=== PATIENT | female | born 1975 | race Caucasian/White ===

== ENCOUNTER 2016-08-04 18:25 | Inpatient (IN) | payer BC ==
--- NOTE | ~2016-08-04 | DS ---
Discharge Summary [facility] [address] [place]. [address] NAME: HOWARD POLLACK : 75 STATUS : DIS IN PAT#: [id number] AGE: 41 ADM/REG DATE : 08/04/16 MR#: [id number] REPORT SERV DATE: 08/09/16 DICTATED BY: JR. ELLISON WILLIAM JOHN DATE: 08/08/16 REPORT STATUS : Draft TRANSCRIBED BY: HIRAM DATE: 08/08/16 ADMISSION DATE: 08/04/2016 DISCHARGE DATE: 08/08/2016 DISCHARGE DIAGNOSES: 1. Recurrent fever of unknown origin. 2. Sinus tachycardia. 3. 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 4. Acute bilateral upper extremity macular rash, which is transient. 5. Elevated liver function enzymes. OPERATIONS, PROCEDURES, AND TREATMENTS: Include: 1. Echocardiogram done on 08/08, which showed an ejection fraction of 50%, indeterminate diastolic dysfunction. Right ventricle was intact. There was no significant valvular dysfunction. 2. Blood cultures x2 done on 08/04/2016 and 08/05/2016 were negative. 3. PA and lateral chest x-ray done on 08/06/[address] of the abdomen and pelvis done on 08/07/2016 showed nonobstructing renal stone. There were scattered diverticula in the colon without diverticulitis. There was prior cholecystectomy without biliary dilation. DISCHARGE MEDICATIONS: Include: 1. Cholecalciferol 10,000 units every 48 hours. 2. Ynes 180 mg orally at bedtime. 3. Singulair 10 mg orally daily. 4. Metoprolol 25 mg orally twice a day. 5. QVAR two sprays twice a day as needed. 6. Albuterol metered-dose inhaler two puffs as needed for shortness of breath. 7. Vitamin B12 urpa-cuk-xvmpigr daily. HOSPITAL COURSE: The patient is a very pleasant 41-year-old white female, who presented to [facility] emergency room on 08/04/2016 with complaint of fever daily for about nine days of fevers. Temperature ranged from 99.1 to 101.2, taken at home. She also complained of some hip and mild thigh and back pain. She had been placed on Levaquin without improvement of her fever, came to the emergency room for further help. Initial exam showed a temperature of 99.4, heart rate 115, blood pressure 131/63, and respiratory rate of 14. For further details of the presenting history, physical, and data, please see Dr. Dimitry Carroll's dictated history and physical. The patient was admitted to the Clinical Decision Unit. Blood cultures were obtained and were negative. With regard to the recurrent fevers, she had elevation of her transaminases with alkaline phosphatase initially 168, ALT of 123, and AST of 57. These declined throughout the hospitalization. Most recent numbers were alkaline phosphatase 153, AST of 88, ALT of 35. She had hepatitis and HIV checked, all of which were negative. She had a rheumatoid factor which was less than 10. She had a C-reactive protein which was elevated at 66.4, and TSH and free T4 were normal. She also had an [facility] profile which is pending at Discharge Summary [address] [place]. [address] NAME: HOWARD POLLACK : 75 STATUS : DIS IN PAT#: [id number] AGE: 41 ADM/REG DATE : 08/04/16 MR#: [id number] REPORT SERV DATE: 08/09/16 DICTATED BY: JR. ELLISON WILLIAM JOHN DATE: 08/08/16 REPORT STATUS : Draft TRANSCRIBED BY: HIRAM DATE: 08/08/16 this time. Eventually, the patient was seen by Dr. Colin Fitzgerald as it is thought this is a noninfectious source of fever. Dr. Fitzgerald agreed. He recommended further lab draws, as well as two blood cultures, and will follow her up in his office on 08/15/2016, at 9:30 a.m. Regarding the patient's sinus tachycardia, this is throughout the hospitalization. She had thyroid drawn which was normal. In addition, the patient had an echocardiogram which showed no structural abnormality. She was placed on metoprolol 25 mg orally twice a day and will follow up with her primary care physician, Dr. Mendez. Regarding the patient's elevated liver function enzymes, these were declining and should be rechecked in two to four weeks. DISCHARGE DIET: Regular. ACTIVITY: As tolerated. For discharge exam and laboratory, please see daily progress notes. The patient will follow up with Dr. Colin Fitzgerald on 08/15/[address] Mendez in one to two weeks. This discharge took 35 minutes for patient's encounter, coordination of care, and documentation. WJF/MODL Adonay Ellison Jr, MD / [id number] CC: Adonay Ellison Jr, MD David Elias, M.D.
--- NOTE | ~2016-08-04 | HP ---
History And Physical [place] [address] [facility] [place]. [address] NAME: HOWARD POLLACK : 75 STATUS : ADM Marcia PAT#: [id number] AGE: 41 ADM/REG DATE : 08/04/16 MR#: [id number] REPORT SERV DATE: 08/05/16 DICTATED BY: JOSHUA FIELD DATE: 08/04/16 REPORT STATUS : Draft TRANSCRIBED BY: MODL DATE: 08/04/16 DATE OF ADMISSION: 08/04/2016 CHIEF COMPLAINT: Fever of unknown origin. HISTORY OF PRESENT ILLNESS: This is a very pleasant 41-year-old white female, who reports that she has had a fever for approximately nine days, temperatures ranging from 99.1 to 101.2 at her home. During these episodes with fever arise that she feels somewhat flushed, some fatigue, and also has complained of some hip pain and some mild thigh and back pain as well. She was seen by primary care provider on Sunday of this week and placed on Levaquin. She has had approximately three doses of that with no improvement on her fevers. In fact, she states they were somewhat higher to her once starting the Levaquin. She has taken some Tylenol at home, which she states has helped very little in regard to her fever. She states her appetite has been somewhat decreased, particularly her fluid intake, but she did eat lunch today. She has had no recent travel or exposures that she knows of. She denies any shortness of breath. Denies any chest pain. Denies any nausea, vomiting. Denies any abdominal pain. Denies any dysuria or frequency, and denies any dizziness, blurred vision, and denies any insect bites or tick bites that she has seen as well. ALLERGIES: INCLUDE DILAUDID, WHICH SHE STATES CLOSE HER THROAT. MORPHINE CAUSES ITCH. PAST MEDICAL HISTORY: Includes diverticulitis, seasonal allergies, and asthma of which she takes ProAir and QVAR p.r.n. for asthma. SURGICAL HISTORY: Cholecystectomy in 2004, laparoscopic colon resection in 2003, and prior C section. FAMILY HISTORY: Unknown on father and none to speak of on mother side. SOCIAL HISTORY: Denies any alcohol. Denies any smoking. REVIEW OF SYSTEMS: Essentially negative, except for pertinents mentioned in the above HPI. PHYSICAL EXAMINATION: VITAL SIGNS: Temperature currently 99.4, pulse rate 115, blood pressure 131/63, respiratory rate 14, and 96% on room air. GENERAL: She is alert and oriented, in no acute distress. No focal deficits. Able to give good history and is cooperative and awake for the entire exam. No appreciable lymphadenopathy is palpated. LUNGS: Clear to auscultation bilaterally. Normal respiratory effort. Currently on room air. No murmurs, rubs, or gallops are auscultated. HEART: Regular rate and rhythm. Sinus tachycardia. ABDOMEN: Soft and nontender with somewhat hypoactive bowel sounds. No edema. Normal distal pulses. HEENT: PERRLA is noted. Sclerae are clear. History And Physical [address] [address] NAME: HOWARD POLLACK : 75 STATUS : ADM Marcia PAT#: [id number] AGE: 41 ADM/REG DATE : 08/04/16 MR#: [id number] REPORT SERV DATE: 08/05/16 DICTATED BY: JOSHUA FIELD DATE: 08/04/16 REPORT STATUS : Draft TRANSCRIBED BY: HIRAM DATE: 08/04/16 SKIN: Warm and dry. ASSESSMENT: 1. Fever of unknown origin. 2. Sinus tachycardia. 3. Asthma. 4. History of urinary tract infection. 5. History of diverticulitis. PLAN: We will plan on obtaining CBC, CMP, UA, TSH, MAC, procalcitonin, and sedimentation rate for lab work. We will start the patient on some IV fluids, lactated Ringer for likely dehydration, and DuoNebs p.r.n. for her asthma. At this time, low threshold for imaging, but could obtain CT of chest or abdomen. If fevers increase or persist or the patient has any aggressive symptomatology, I have updated both patient and at bedside. Questions were answered. She will have reasonable pain and nausea control as well. DVT prophylaxis and further workup pending this initial testing. STACEY/MODL Joshua Field NP / [id number] CC: MD Akash Lawrence, M.D.
[2016-08-04 21:49] LABS: BASOPHILS ABSOLUTE 0.07 10/3/uL (0.0-0.16); EOSINOPHILS 1.1 %; EOSINOPHILS ABSOLUTE 0.08 10/3/uL (0.0-0.53); IMMATURE GRANULOCYTES ABSOLUTE 0.07 10/3/uL (0.0-0.11); LYMPHOCYTES 38.5 %; LYMPHOCYTES ABSOLUTE 2.69 10/3/uL (0.67-4.30); MANUAL DIFF NO %; MEAN CORPUS HGB CONC 34.2 g/dL (32.0-36.0); MEAN CORPUSCULAR HEMOGLOB 30.2 pg (26.0-34.0); MEAN CORPUSCULAR VOLUME 88.2 fL (80-100); MONOCYTES 8.4 %; MONOCYTES ABSOLUTE 0.59 10/3/uL (0.21-1.20); NEUTROPHILS ABSOLUTE 3.49 10/3/uL (2.02-8.40); PLATELET COUNT 251 10/3/uL (150-400); RBC DISTRIBUTION WIDTH 13.2 % (12.0-16.0); RED CELL COUNT 4.31 10/6/uL (4.0-5.6)
[2016-08-04 22:02] LABS: A/G RATIO 0.9 (0.7-1.9); ALBUMIN 3.7 G/DL (3.5-5.0); ALKALINE PHOSPHATASE 195 U/L (45-117); BUN (BLOOD UREA NITROGEN) 9 MG/DL (6-23); CALCIUM, SERUM 8.8 MG/DL (8.5-10.4); CHLORIDE, SERUM 101 MMOL/L (96-112); CO2 (CARBON DIOXIDE) 25 MMOL/L (24-34); GFR AFRICAN AMERICAN 131 ML/MIN (>=60); GFR NON AFRICAN AMERICAN 113 ML/MIN (>=60); GLOBULIN 4.2 G/DL (2.5-4.1); GLUCOSE, SERUM 109 MG/DL (60-99); POTASSIUM, SERUM 3.7 MMOL/L (3.5-5.3); SGOT(AST) 75 U/L (5-40); SGPT(ALT) 145 U/L (5-65); SODIUM, SERUM 136 MMOL/L (135-148); TOTAL BILIRUBIN 1.1 MG/DL (0-1.2); TOTAL PROTEIN 7.9 G/DL (6.0-8.5); ULTRASENSITIVE TSH 0.954 MCIU/ML (0.358-3.740)
[2016-08-04 22:02] LABS: ASCORBIC ACID (UR NOT ORDER) NEG (NEG); BILIRUBIN, URINE NEGATIVE (NEG); KETONE, URINE NEGATIVE (NEG); LEUKOCYTE ESTERASE(NOT OR NEG (NEG); WBC (NOT ORDERED) (RFLEX) 1 (0-5)
[2016-08-04 22:57] LABS: PROCALCITONIN <0.05 ng/mL (<0.5)
[2016-08-04 23:16] LABS: SED RATE 28 MM/HR (0-20)
[2016-08-05] MEDS ORDERED: ALLEGRA180 PO (01:39)
[2016-08-05] MEDS ORDERED: SINGULAIR1 PO (01:40)
[2016-08-05] MEDS ORDERED: QVAR80 MCG INH (01:43)
[2016-08-05] MEDS ORDERED: LEVAQUIN5T PO (01:44)
[2016-08-05] MEDS ORDERED: PROAIR HFA INH (01:48)
[2016-08-05 06:36] LABS: BASOPHILS 0.6 %; BASOPHILS ABSOLUTE 0.04 10/3/uL (0.0-0.16); EOSINOPHILS 1.9 %; EOSINOPHILS ABSOLUTE 0.12 10/3/uL (0.0-0.53); HEMATOCRIT 36.2 % (36.0-48.0); HEMOGLOBIN 12.4 g/dL (12.0-16.0); IMMATURE GRANULOCYTES 0.8 %; IMMATURE GRANULOCYTES ABSOLUTE 0.05 10/3/uL (0.0-0.11); LYMPHOCYTES 40.8 %; MANUAL DIFF NO %; MEAN CORPUS HGB CONC 34.3 g/dL (32.0-36.0); MEAN CORPUSCULAR HEMOGLOB 30.4 pg (26.0-34.0); MEAN CORPUSCULAR VOLUME 88.7 fL (80-100); MONOCYTES ABSOLUTE 0.64 10/3/uL (0.21-1.20); NEUTROPHILS 45.9 %; NEUTROPHILS ABSOLUTE 2.92 10/3/uL (2.02-8.40); PLATELET COUNT 237 10/3/uL (150-400); RBC DISTRIBUTION WIDTH 13.1 % (12.0-16.0); RED CELL COUNT 4.08 10/6/uL (4.0-5.6); WHITE BLOOD CELLS 6.4 10/3/uL (4.5-10.5)
[2016-08-05 06:56] LABS: A/G RATIO 0.8 (0.7-1.9); ALBUMIN 3.1 G/DL (3.5-5.0); BUN (BLOOD UREA NITROGEN) 7 MG/DL (6-23); CALCIUM, SERUM 8.3 MG/DL (8.5-10.4); CHLORIDE, SERUM 104 MMOL/L (96-112); CO2 (CARBON DIOXIDE) 24 MMOL/L (24-34); CREATININE 0.48 MG/DL (0.55-1.02); GFR AFRICAN AMERICAN 141 ML/MIN (>=60); GFR NON AFRICAN AMERICAN 122 ML/MIN (>=60); GLOBULIN 3.8 G/DL (2.5-4.1); GLUCOSE, SERUM 116 MG/DL (60-99); POTASSIUM, SERUM 3.8 MMOL/L (3.5-5.3); SGOT(AST) 57 U/L (5-40); SGPT(ALT) 123 U/L (5-65); SODIUM, SERUM 139 MMOL/L (135-148); TOTAL BILIRUBIN 0.9 MG/DL (0-1.2); TOTAL PROTEIN 6.9 G/DL (6.0-8.5)
[2016-08-05 06:58] LABS: ALKALINE PHOSPHATASE 168 U/L (45-117)
[2016-08-05] MEDS ORDERED: MAXIMUM D3 PO (11:23)
[2016-08-05] MEDS ORDERED: VITAMIN B-12 PO (11:23)
[2016-08-06 05:35] LABS: BASOPHILS 1.4 %; BASOPHILS ABSOLUTE 0.09 10/3/uL (0.0-0.16); EOSINOPHILS 1.6 %; HEMATOCRIT 36.6 % (36.0-48.0); HEMOGLOBIN 12.5 g/dL (12.0-16.0); IMMATURE GRANULOCYTES 0.9 %; IMMATURE GRANULOCYTES ABSOLUTE 0.06 10/3/uL (0.0-0.11); LYMPHOCYTES 36.6 %; LYMPHOCYTES ABSOLUTE 2.34 10/3/uL (0.67-4.30); MANUAL DIFF NO %; MEAN CORPUS HGB CONC 34.2 g/dL (32.0-36.0); MEAN CORPUSCULAR HEMOGLOB 30.4 pg (26.0-34.0); MEAN CORPUSCULAR VOLUME 89.1 fL (80-100); MONOCYTES 8.4 %; MONOCYTES ABSOLUTE 0.54 10/3/uL (0.21-1.20); NEUTROPHILS 51.1 %; NEUTROPHILS ABSOLUTE 3.27 10/3/uL (2.02-8.40); PLATELET COUNT 247 10/3/uL (150-400); RBC DISTRIBUTION WIDTH 13.3 % (12.0-16.0); RED CELL COUNT 4.11 10/6/uL (4.0-5.6); WHITE BLOOD CELLS 6.4 10/3/uL (4.5-10.5)
[2016-08-06 05:49] LABS: A/G RATIO 0.8 (0.7-1.9); ALBUMIN 3.1 G/DL (3.5-5.0); ALKALINE PHOSPHATASE 165 U/L (45-117); BUN (BLOOD UREA NITROGEN) 5 MG/DL (6-23); CALCIUM, SERUM 8.5 MG/DL (8.5-10.4); CHLORIDE, SERUM 100 MMOL/L (96-112); CO2 (CARBON DIOXIDE) 25 MMOL/L (24-34); CREATININE 0.53 MG/DL (0.55-1.02); DIRECT BILIRUBIN 0.1 MG/DL (0.0-0.4); GFR AFRICAN AMERICAN 137 ML/MIN (>=60); GFR NON AFRICAN AMERICAN 118 ML/MIN (>=60); GLOBULIN 3.9 G/DL (2.5-4.1); GLUCOSE, SERUM 104 MG/DL (60-99); INDIRECT BILIRUBIN(NOT ORDER) 1.1 MG/DL (0.1-0.9); POTASSIUM, SERUM 3.6 MMOL/L (3.5-5.3); SGOT(AST) 43 U/L (5-40); SGPT(ALT) 109 U/L (5-65); SODIUM, SERUM 138 MMOL/L (135-148); TOTAL BILIRUBIN 1.2 MG/DL (0-1.2)
[2016-08-07 04:32] LABS: BASOPHILS 1.5 %; BASOPHILS ABSOLUTE 0.11 10/3/uL (0.0-0.16); EOSINOPHILS 1.4 %; HEMATOCRIT 36.7 % (36.0-48.0); HEMOGLOBIN 12.3 g/dL (12.0-16.0); IMMATURE GRANULOCYTES 1.3 %; IMMATURE GRANULOCYTES ABSOLUTE 0.09 10/3/uL (0.0-0.11); LYMPHOCYTES 36.6 %; LYMPHOCYTES ABSOLUTE 2.61 10/3/uL (0.67-4.30); MEAN CORPUS HGB CONC 33.5 g/dL (32.0-36.0); MEAN CORPUSCULAR HEMOGLOB 29.9 pg (26.0-34.0); MEAN CORPUSCULAR VOLUME 89.1 fL (80-100); MONOCYTES 11.2 %; NEUTROPHILS ABSOLUTE 3.43 10/3/uL (2.02-8.40); PLATELET COUNT 235 10/3/uL (150-400); RBC DISTRIBUTION WIDTH 13.7 % (12.0-16.0); RED CELL COUNT 4.12 10/6/uL (4.0-5.6); WHITE BLOOD CELLS 7.1 10/3/uL (4.5-10.5)
[2016-08-07 04:41] LABS: MANUAL DIFF NO %
[2016-08-07 04:50] LABS: A/G RATIO 0.8 (0.7-1.9); BUN (BLOOD UREA NITROGEN) 7 MG/DL (6-23); CALCIUM, SERUM 8.5 MG/DL (8.5-10.4); CHLORIDE, SERUM 99 MMOL/L (96-112); CO2 (CARBON DIOXIDE) 26 MMOL/L (24-34); CREATININE 0.56 MG/DL (0.55-1.02); GFR AFRICAN AMERICAN 134 ML/MIN (>=60); GFR NON AFRICAN AMERICAN 116 ML/MIN (>=60); GLOBULIN 3.9 G/DL (2.5-4.1); GLUCOSE, SERUM 106 MG/DL (60-99); POTASSIUM, SERUM 3.7 MMOL/L (3.5-5.3); SGOT(AST) 35 U/L (5-40); SGPT(ALT) 80 U/L (5-65); SODIUM, SERUM 136 MMOL/L (135-148); TOTAL BILIRUBIN 1.1 MG/DL (0-1.2); TOTAL PROTEIN 6.9 G/DL (6.0-8.5)
[2016-08-07 04:52] LABS: ALKALINE PHOSPHATASE 153 U/L (45-117)
[2016-08-07 10:22] LABS: HEPATITIS B SURFACE ANTIGEN NON-REACTIVE (NON-REACT)
[2016-08-07 10:40] LABS: HEPATITIS B CORE AB IGM NON-REACTIVE (NON-REAC); HEPATITIS C ANTIBODY NON-REACTIVE (NON-REACT)
[2016-08-07 10:42] LABS: HEP A ANTIBODY IGM NON-REACTIVE (NON-REACT)
[2016-08-08 12:18] LABS: FREE T4 1.41 NG/DL (0.76-1.46); ULTRASENSITIVE TSH 1.19 MCIU/ML (0.358-3.740)
[2016-08-08 14:52] LABS: C-REACTIVE PROTEIN 66.4 MG/L (<8.0)
[2016-08-08] MEDS ORDERED: LOP25 PO (15:13)
[2016-08-09 10:57] LABS: ANA TITER <1:40 TITER
[2016-08-10 16:12] LABS: RICKETTSIA TYPHI AB IGG <1:64 (LTD64); RICKETTSIA TYPHI AB IGM <1:64 (LTD64); ROCKY MTN SPOTTED FEVER AB IGG <1:64 (LTD64); ROCKY MTN SPOTTED FEVER AB IGM <1:64 (LTD64)
== END 2016-08-08 15:58 | disposition home or self-care (01) | DRG 864 ==
LOC: CDU2 18:25
PROVIDERS: Internal Medicine; Internal Medicine Infectious Disease; Nurse Practitioner Family
DX: R50.9 Fever, unspecified (principal); E86.0 Dehydration; J30.2 Other seasonal allergic rhinitis; R00.0 Tachycardia, unspecified; J45.909 Unspecified asthma, uncomplicated; R76.11 Nonspecific reaction to tuberculin skin test without active tuberculosis; R79.89 Other specified abnormal findings of blood chemistry; R21 Rash and other nonspecific skin eruption; M25.511 Pain in right shoulder; M25.559 Pain in unspecified hip; M25.551 Pain in right hip; M79.641 Pain in right hand; Z88.5 Allergy status to narcotic agent; Z90.49 Acquired absence of other specified parts of digestive tract; Z87.440 Personal history of urinary (tract) infections
CPT/HCPCS: 71020; 74177; 80053; 80074; 81001; 82248; 82728; 83735; 84145; 84439; 84443; 84703; 85025; 85652; 86039; 86140; 86431; 86757; 86757-59; 87040; 87389; 93306; A9270-GY; Q9967